=== PATIENT | male | born 1995 | race Caucasian/White ===

== ENCOUNTER 2016-06-01 21:10 | Inpatient (IN) ==
[2016-06-01] MEDS ORDERED: Insulin LISPRO 300 UNITS/3 ML VIAL SQ PRN (22:49)
[2016-06-01] MEDS ORDERED: Insulin Regular, Human 100 UNIT/ML IV ONE (22:49)
[2016-06-01] MEDS ORDERED: *HR* Dextrose 50 % in Water (Syg) 50 ML SYRINGE IVP PRN (22:49)
[2016-06-01] MEDS ORDERED: Insulin Regular, Human 100 UNIT/ML IV PRN (22:49)
[2016-06-01] MEDS ORDERED: *HR* OxyCODONE Immed Rel 5 MG TABLET PO PRN (23:00)
[2016-06-01] MEDS ORDERED: Ondansetron 4 MG/2 ML VIAL IVP PRN (23:00)
[2016-06-01] MEDS ORDERED: Acetaminophen 325 MG TABLET PO PRN (23:00)
[2016-06-01] MEDS ORDERED: Naloxone 0.4 MG/ML INJ IVP PRN (23:00)
[2016-06-01] MEDS ORDERED: 0.9 % Sodium Chloride 1,000 ML IV SCH (23:00)
[2016-06-01] MEDS ORDERED: Insulin Human Regular 100 UNIT in 0.9 % Sodium Chloride 100 ML IVC SCH (23:00)
[2016-06-01] MEDS ORDERED: D5% in 0.45% NACL 1,000 ML IVC PRN (23:19)
[2016-06-01] MEDS ORDERED: 0.9 % Sodium Chloride w KCl 20 MEQ/1,000 ML MLS IVC ONE (23:24)
[2016-06-01] MEDS: Insulin Human Regular 100 UNIT in 0.9 % Sodium Chloride 100 ML IVC SCH (23:37)
[2016-06-01] MEDS: 0.9 % Sodium Chloride w KCl 20 MEQ/1,000 ML MLS IVC SCH (23:45)
[2016-06-01 23:57] LABS: ABG Base Excess -20.8 mEq/L (-2.0 to 3.0); ABG HCO3 5.1 mEQ/L (21-27); ABG Oxygen Saturation 98 % (95-98); ABG PO2 133 mmHg (85-104); ABG TCO2 5.5 mEq/L (20-26); Blood Gas FiO2 21 %
[2016-06-01 23:59] LABS: ABG PCO2 14 mmHg (35-45); ABG PH 7.17 pH Units (7.32-7.45)
[2016-06-02] MEDS ORDERED: *HR* LORazepam 2 MG/ML VIAL IVP STA (00:35)
--- NOTE | 2016-06-02 02:59 | Internal Med History&Physical ---
Date of Encounter: 06/02/16 Time of Encounter: 23:00 Assessment and Plan (1) Obesity (BMI 30-39.9) Current visit: Yes Status: Chronic . (2) Hypertension Current visit: Yes Status: Chronic . Qualifiers: Hypertension type: essential hypertension Qualified Code(s): I10 - Essential (primary) hypertension (3) Acute gastroenteritis Current visit: Yes Status: Acute . (4) Systemic inflammatory response syndrome (SIRS) Current visit: Yes Status: Acute . (5) High anion gap metabolic acidosis Current visit: Yes Status: Acute . (6) Acute kidney injury superimposed on CKD Current visit: Yes Status: Acute . (7) Hyperosmolar syndrome Current visit: Yes Status: Acute . (8) DKA (diabetic ketoacidosis) Current visit: Yes Status: Acute . Qualifiers: Diabetes mellitus type: type 1 Diabetes mellitus complication detail: without coma Qualified Code(s): E10.10 - Type 1 diabetes mellitus with ketoacidosis without coma (9) Diabetes mellitus, new onset Current visit: Yes Status: Acute . (10) Anxiety about health Current visit: Yes Status: Acute . (11) Anxiety as acute reaction to exceptional stress Current visit: Yes Status: Acute . (12) Severe anxiety about hospitalization Current visit: Yes Status: Acute . (13) Nonspecific syndrome suggestive of viral illness Current visit: Yes Status: Acute . (14) Proteinuria with type 1 diabetes mellitus Current visit: Yes Status: Acute . (15) Diabetic nephropathy with proteinuria Current visit: Yes Status: Acute . (16) Hyperchloremic metabolic acidosis Current visit: Yes Status: Acute . Internal Medicine - H&P: HPI Chief complaint: Abdominal pain nausea vomiting headaches. Admitted From: Hospital to Hospital Transfer (Hospital transfer [facility] emergency department) Plans for Post Hospital Care: Home History of present illness: Mr. Thomson is a 21 year old male with medical history most noteworthy for hypertension and obesity. Nonsmoker. The patient was visited and interviewed and examined. The patient is admitted to the [facility] as a hospital transfer from [facility] emergency department he presented in the company of family with complaints of intractable nausea vomiting abdominal pain and headaches and malaise. Patient reported a 4-5 day period of gastrointestinal complaints. This concluded the cramping abdominal bloating nausea and emesis as well as some stools. He averaged about 4-5 episodes of emesis per day which was described as nonbloody and nonbilious. Primarily of undigested food but dry heaving also experience it well. Symptoms were exacerbated whenever he attempted to eat or drink anything. Stomach discomfort was more of a constant dull nauseated ache rather than overt pain. Bowel movements were loose but intermittently normal formed bowel movements were also noted. He noted no blood or mucus watery contents. He denied any associated urinary symptoms. Denied any overt feverishness chilling or sweats. He did have a viral-like upper respiratory symptom of sore throat and head congestion that seemed to predate these symptoms. He did not experience any upper or lower pulmonary complaints. [id number] has utilized [id number] antihistaminics and antidiarrheal that has included Dramamine and Pepto-Bismol. These of offered but little or no relief. He denies any recent travel or any known sick contacts. Does not possess any personal or family related history of chronic gastrointestinal problems. He has not undergone any previous gastrointestinal surgeries or procedures. Family history is however noteworthy for diabetes acting multiple members and heart disease affecting multiple members. He denied any recreational or dietary indiscretions. He denies alcohol, tobacco and recreational drug use. Findings in the ED: Temperature 97.5 pulse 104 respirations 20 BP 122/68 O2 saturation 97% room air. WBC 18.6 RBC 6.13 hemoglobin 16.5 platelets 478,000. MCV 79.6 and MCH 26.9. Differential shows an increase in neutrophils. Metabolic panel noted sodium of 134 potassium 3.4 chloride 95. Carbon dioxide 6 BUN 15 creatinine 2.32 GFR 36. Glucose 749 osmolality 315. Beta hydroxybutyric acid greater than 2.00. Venous blood gas pH 7.14 PCO2 23.1 PO2 61.3 bicarbonate 7.9. Phosphorus 5.3 magnesium 2.2. Urinalysis shows large protein and large glucose and large ketones small bilirubin. Specific gravity 1.025. Preliminary impression suggests new-onset type 1 diabetes mellitus presenting in acute diabetes ketoacidosis. Acute Gastro enteritis syndrome at a complaints of abdominal discomfort and nausea vomiting and diarrheal stools as well as nonspecific upper respiratory platelets of head congestion sore throat and postnasal drainage predated onset of DKA. Screening studies suggest presence of chronic kidney disease, moderate- to-severe, with GFR of 36. This may have predated the first some time today's acute events given elevation and phosphorus level implying possible secondary hyperparathyroidism. Urinalysis demonstrates significant proteinuria implying diabetic glomerular nephropathy possibly predating this acute onset of hyperglycemia and hyperosmolar syndrome. Systemic inflammatory response syndrome criteria and are present at the time of admission. Microcytic hyperchromic red blood cell indices may also suggest presence of the hemoglobinopathy such as alpha thalassemia given the high RBC count. These findings the patient is indeed at risk for further acute clinical decline and morbidity with today's presentation. Workup and treatments will progress comprehensively. Cumulative laboratory and radiographic data base was reviewed, considered and discussed. Pertinent ancillary medical records including ECW and PCI documentation, when available, was reviewed and considered. Given the patient's presenting concerns, past medical history, clinical findings and symptoms, he is admitted at this time will undergo further evaluation and disposition. Orders were written as per the computerized physician reproduction order processor system.......................................................................... .................... Consultative opinions will be sought as clinical circumstances justify. Pain management needs will be addressed. Laboratory and radiographic data base will be updated as appropriate. Studies include: Cultures of blood and urine and sputum, cardiac injury panel, BNP, metabolic and hematologic panel, magnesium, phosphorus, ionized calcium, thyroid panel, lipid profile, A1c, C-peptide, CRP, sedimentation rate, respiratory infection profile, respiratory virus panel, blood gas, U/A, UDS, amylase, lipase, beta-hydroxybutyric acid, lactic acid, serologies, etc. Precautions: Aspiration, fall, delirium protocol/surveillance initiated. Telemetry with continuous hemodynamic monitoring and pulse oximetry initiated. Orthostatic vital signs. Empiric antibiotic coverage: pending culture data. Special studies: chest x-ray, KUB, telemetry, EKG, scan, postvoid residual, ultrasound retroperitoneum. Pulmonary toilet: Incentive spirometry. When necessary aerosol bronchodilator, mucolytic, antitussive, supplemental oxygen. Fluid and electrolyte repletion efforts will proceed. Careful attention to fluid balance and renal recovery will be emphasized. Avoidance of nephrotoxic exposure and adverse drug drug interaction in the setting of impaired renal function will be monitored closely. Strict input/ output and daily weight measurements. Correction of metabolic and acid-base deficits will be emphasized. Intravenous sodium bicarbonate drip supplementation initiated to address significant hyperchloremic metabolic acidosis suggestive of RTA and renal bicarbonate losses. Acute coronary syndrome protocol/surveillance initiated. DVT and PUD prophylaxis initiated: PPI therapy, intermittent pneumatic cuffs/ TEDS. Subcutaneous heparin/lovenox was held due to age. Low risk for acute DVT. Early ambulation will be encouraged. Immunization updates recommended. Influenza and pneumococcal vaccinations as part of ongoing preventative healthcare recommendations strongly recommended. Smoking cessation counseling briefly addressed. Patient is a nonsmoker. Advanced care directive discussion briefly addressed. Patient does not declare any healthcare restrictions at this time. Cardiovascular risk appraisal and cardiovascular risk reduction efforts will be emphasized. Physical and occupational therapy may be consulted to evaluate/assess patient's functional capacity and progress mobility if circumstances justify. Sliding scale insulin, nutritional and basal insulin coverage amounts upon stabilization of glucose trends on insulin drip and DKA protocol. ADA/cardiac healthy dietary restraint and scheduled and as-needed basis fingerstick glucose assessments initiated. Nutrition/diabetes education requested to facilitate instruction in appropriate diabetes health maintenance, dietary selection, diabetes monitoring and therapeutic requirements and performance. Outpatient medication schedules will be reviewed, confirmed and facilitated as appropriate. Reconciliation of home treatments including adjustments, substitutions and reintroduction into the treatment regimen will address necessary maintenance therapies for chronic pre-existing medical conditions. Plan of care has been reviewed and discussed in detail with the patient and family in attendance. Questions addressed to their mutual satisfaction and reassurance. Hospital course is dependent on clinical findings, treatment response and potential consultative interventions. Patient is at risk for further acute clinical decline and morbidity given presenting chief complaints, clinical findings and comorbidities. Condition is serious. Prognosis is cautiously optimistic. CODE STATUS is full. Past Med Surg Social Fam HX - Past Medical History Source: old records reviewed Medical history: arthritis, hypertension, other (Obesity) Psychiatric history: no psych history, other - Past Surgical History Surgical History: other (Tonsillectomy adenoidectomy. Bilateral myringotomy tubes.) - Social History Smoking Status: Never smoker Smokeless Tobacco Status: No Alcohol use: none Drug use: none - Family History Grandfather Hx Family Endocrine Disorder: Yes Internal Medicine - H&P: Meds Lisinopril [Zestril] 20 mg PO DAILY 06/01/16 [History] Allergies No Known Allergies Allergy (Verified 06/01/16 19:18) All Systems PM: A 10-system review of systems was performed and is negative for pertinent findings except as documented above in the HPI. - Constitutional Constitutional: as per HPI, malaise, other, no chills, no fever(s), no night sweats - EENT Eyes: as per HPI, no change in vision, no discharge, no pain, no photophobia Ears: as per HPI, no ear discharge, no ear pain, no tinnitus Nose, mouth and throat: as per HPI, nasal congestion, post-nasal drip, sore throat, other, no dysphagia, no nasal discharge, no neck pain - Cardiovascular Cardiovascular ROS IM: as per HPI, no chest pain, no diaphoresis, no dyspnea, no lightheadedness, no palpitations, no syncope - Respiratory Respiratory: as per HPI, no cough, no dyspnea, no wheezing, no excessive phlegm production - Gastrointestinal Gastrointestinal: as per HPI, abdominal pain, bloating, change in bowel habits, cramping, nausea, vomiting, other, no coffee ground emesis, no diarrhea, no hematemesis, no hematochezia, no melena - Genitourinary Genitourinary ROS male: as per HPI, no difficulty urinating, no dysuria, no hematuria - Musculoskeletal Musculoskeletal ROS IM: as per HPI, myalgias, no numbness, no tingling - Integumentary Integumentary IM: as per HPI, no rash, no unusual bruising - Neurological Neurological ROS: as per HPI, headache(s), no confusion, no convulsions, no focal weakness, no numbness, no tingling, no tremor(s) - Psychiatric Psychiatric: as per HPI - Endocrine Endocrine IM: as per HPI, fatigue, polyuria - Hematologic/Lymphatic Hematologic/Lymphatic: as per HPI, no easy bruising - Allergic/Immunologic Allergic/Immunologic: as per HPI - Constitutional Vitals: Temp Pulse Resp BP Pulse Ox 98.5 F 130 20 166/83 98 06/01/16 22:44 06/01/16 22:44 06/01/16 22:44 06/01/16 22:44 06/01/16 22:44 General appearance: Present: cooperative, mild distress, A&O X 3, obese, answers questions appropriately - Head Head exam: Present: atraumatic, normal inspection, normocephalic - Eye Eye exam: Present: EOMI, PERRL, conjuntiva pink, sclera anicteric Pupils: Present: normal accommodation, PERRL - ENT ENT exam: Present: mucous membranes dry, normal external ear exam, normal oropharynx - Neck Neck exam general surgery: Present: full ROM, supple, trachea midline. Absent: lymphadenopathy, tenderness, nuchal rigidity - Respiratory Respiratory exam: Present: decreased breath sounds, CTAB. Absent: accessory muscle use, rales, rhonchi, wheezes - Cardiovascular Cardiovascular exam: Present: distant heart sounds, RRR, +S1, +S2, tachycardia. Absent: diastolic murmur, gallop, rubs, systolic murmur - GI/Abdominal GI/Abdominal exam: Present: normal bowel sounds, soft, no peritoneal signs. Absent: distended, tenderness - Extremities Exam Extremities exam: Present: full ROM, warm, radial pulses palpable and symetrical. Absent: calf tenderness, cyanotic, pedal edema - Neurological Exam Neurological exam: Present: alert, CN II-XII intact, oriented X3, no focal deficits. Absent: pronater drift, facial droop, speech deficit - Expanded Neurological Exam Neurological exam expanded: Present: inattentive, protecting the airway. Absent : ataxia, expressive aphasia, receptive aphasia Patient oriented to: Present: person, place, time Speech: Present: fluid speech Coma Scale Eye Opening: Spontaneous Coma Scale Motor Response: Obeys Commands Coma Scale Verbal Response: Oriented Coma Scale Total: 15 - Psychiatric Psychiatric exam: Present: anxious, normal affect, normal mood - Expanded Psychiatric Exam Focused psych exam: Present: restlessness - Skin Skin exam: Present: dry, intact, warm. Absent: petechiae, rash, urticaria, vesicles Internal Med - H&P Results - Labs CBC & Chem 7: 06/02/16 04:29 06/02/16 04:29 - ABG Interpretation ABG results: 06/01/16 23:47 ABG pH 7.17 L* ABG pCO2 14 L* ABG pO2 133 H ABG HCO3 5.1 L ABG Total CO2 5.5 L ABG O2 Saturation 98 ABG Base Excess -20.8 L - Impressions ITS Impressions Chest X-Ray 06/01/16 22:59 IMPRESSION: No acute process. D/ / Deborah Plascencia MD / Deborah Plascencia MD Interpreting Provider: Deborah Plascencia MD X-Ray 06/01/16 23:07 IMPRESSION: No acute findings. D/ / Deborah Plascencia MD / Deborah Plascencia MD Interpreting Provider: Deborah Plascencia MD Vital Signs Temp Pulse Resp BP Pulse Ox 06/01/16 22:44 98.5 F 130 20 166/83 98 Intake and Output 06/01/16 06/01/16 06/02/16 15:59 23:59 07:59 Intake Total 41 / 41 Balance 41 / 41 Intake: IV Fluids / HumuLIN R 100 UNIT In 0. 41 / 41 9 % Sodium Chloride 100 ML @ 0.1 UNIT/KG/HR 12.77 mls/hr IVC CONT MUSTAPHA Rx#: [id number] Other: Weight 126.5 kg Blood Glucose* 337 Allergies Allergy/AdvReac Type Severity Reaction Status Date / Time No Known Allergies Allergy Verified 06/01/16 19:18 06/01/16 23:47 ABG pH 7.17 L* ABG pCO2 14 L* ABG pO2 133 H ABG HCO3 5.1 L ABG Total CO2 5.5 L ABG O2 Saturation 98 ABG Base Excess -20.8 L Abnormal lab results ABG pH 7.17 pH Units (7.32-7.45) L* 06/01/16 23:47 ABG pCO2 14 mmHg (35-45) L* 06/01/16 23:47 ABG pO2 133 mmHg (85-104) H 06/01/16 23:47 ABG HCO3 5.1 mEQ/L (21-27) L 06/01/16 23:47 ABG Total CO2 5.5 mEq/L (20-26) L 06/01/16 23:47 ABG Base Excess -20.8 mEq/L (-2.0 to 3.0) L 06/01/16 23:47 POC Glucose 464 (58-89) H* 06/02/16 01:28 Serum Osmolality 343 mOsm/kg (280-300) H 06/02/16 00:01 Laboratory Last Values ABG pH 7.17 pH Units (7.32-7.45) L* 06/01/16 23:47 ABG pCO2 14 mmHg (35-45) L* 06/01/16 23:47 ABG pO2 133 mmHg (85-104) H 06/01/16 23:47 ABG HCO3 5.1 mEQ/L (21-27) L 06/01/16 23:47 ABG Total CO2 5.5 mEq/L (20-26) L 06/01/16 23:47 ABG O2 Saturation 98 % (95-98) 06/01/16 23:47 ABG Base Excess -20.8 mEq/L (-2.0 to 3.0) L 06/01/16 23:47 Blood Gas Modality RA 06/01/16 23:47 Inspired O2 21 % 06/01/16 23:47 POC Glucose 464 (58-89) H* 06/02/16 01:28 Serum Osmolality 343 mOsm/kg (280-300) H 06/02/16 00:01 Laboratory Last Values WBC 20.8 K/mcL (4.3-11.1) H 06/02/16 04:29 RBC 5.80 M/mcL (4.19-5.50) H 06/02/16 04:29 Hgb 15.5 g/dL (12.9-16.9) 06/02/16 04:29 Hct 47.3 % (37.5-50.1) 06/02/16 04:29 MCV 81.6 fL (83.0-100.0) L 06/02/16 04:29 MCH 26.7 pg (28.0-33.3) L 06/02/16 04:29 MCHC 32.8 g/dL (31.6-35.5) 06/02/16 04:29 RDW 14.4 % (11.5-14.5) 06/02/16 04:29 Plt Count 406 K/mcL (140-400) H 06/02/16 04:29 MPV 10.7 fL (9.4-12.4) 06/02/16 04:29 Immature Gran % 1.4 % (0-4) 06/02/16 04:29 Seg Neutrophils % 76.7 % 06/02/16 04:29 Lymphocytes % 14.4 % 06/02/16 04:29 Monocytes % 6.9 % 06/02/16 04:29 Eosinophils % 0.0 % 06/02/16 04:29 Basophils % 0.6 % 06/02/16 04:29 Neutrophils # 16.0 K/mcL (1.6-8.9) H 06/02/16 04:29 Lymphocytes # 3.0 K/mcL (0.6-4.6) 06/02/16 04:29 Monocytes # 1.4 K/mcL (0.0-1.3) H 06/02/16 04:29 Eosinophils # 0.0 K/mcL (0.0-0.6) 06/02/16 04:29 Basophils # 0.1 K/mcL (0.0-0.2) 06/02/16 04:29 PT 12.7 Seconds (9.4-12.1) H 06/02/16 04:29 INR 1.2 06/02/16 04:29 APTT 27.9 Seconds (26.0-36.0) 06/02/16 04:29 ABG pH 7.17 pH Units (7.32-7.45) L* 06/01/16 23:47 ABG pCO2 14 mmHg (35-45) L* 06/01/16 23:47 ABG pO2 133 mmHg (85-104) H 06/01/16 23:47 ABG HCO3 5.1 mEQ/L (21-27) L 06/01/16 23:47 ABG Total CO2 5.5 mEq/L (20-26) L 06/01/16 23:47 ABG O2 Saturation 98 % (95-98) 06/01/16 23:47 ABG Base Excess -20.8 mEq/L (-2.0 to 3.0) L 06/01/16 23:47 VBG pH 7.24 pH Units (7.32-7.42) L 06/02/16 04:29 VBG pCO2 19 mmHg (41-51) L 06/02/16 04:29 VBG pO2 166 mmHg (25-40) H 06/02/16 04:29 VBG HCO3 8.1 mEq/L (21-27) L 06/02/16 04:29 Blood Gas Modality RA 06/01/16 23:47 Inspired O2 21 % 06/01/16 23:47 Sodium 142 mEq/L (136-145) D 06/02/16 04:29 Potassium 3.1 mEq/L (3.5-4.5) L 06/02/16 04:29 Chloride 113 mEq/L (98-109) H D 06/02/16 04:29 Carbon Dioxide 7 mEq/L (19-29) L* 06/02/16 04:29 BUN 15 mg/dL (8-26) 06/02/16 04:29 Creatinine 2.31 mg/dL (0.72-1.25) H 06/02/16 04:29 Est GFR ( Amer) 44 (> 60) L 06/02/16 04:29 Est GFR (Non-Af Amer) 36 (> 60) L 06/02/16 04:29 BUN/Creatinine Ratio 6 (6-26) 06/02/16 04:29 Glucose 340 mg/dL (70-99) H 06/02/16 04:29 POC Glucose 464 (58-89) H* 06/02/16 01:28 Est Mean Plasma Glucose 324 mg/dl 06/02/16 04:29 Hemoglobin A1c 12.9 % (-5.6) H 06/02/16 04:29 Serum Osmolality 343 mOsm/kg (280-300) H 06/02/16 00:01 Calculated Osmolality 308 (280-300) H 06/02/16 04:29 Lactic Acid 1.9 mmol/L (0.5-2.2) 06/02/16 04:29 Calcium 9.7 mg/dL (8.6-10.8) 06/02/16 04:29 Phosphorus 1.0 mg/dL (2.3-4.7) L* D 06/02/16 04:29 Magnesium 2.3 mg/dL (1.7-2.2) H 06/02/16 04:29 Total Bilirubin 0.3 mg/dL (0.2-1.2) 06/02/16 04:29 AST 11 Units/L (5-34) 06/02/16 04:29 ALT 16 Units/L (0-55) 06/02/16 04:29 Alkaline Phosphatase 104 Units/L (38-126) 06/02/16 04:29 Serum Total Protein 7.4 g/dL (6.0-8.3) 06/02/16 04:29 Albumin 3.9 g/dL (3.5-5.0) 06/02/16 04:29 Globulin 3.5 g/dL (2.4-3.5) 06/02/16 04:29 Albumin/Globulin Ratio 1.1 (1.1-2.2) 06/02/16 04:29 Beta-Hydroxybutyric Acd > 2.00 mmol/L (0.02-0.27) H 06/02/16 04:29
[2016-06-02] MEDS: 0.9 % Sodium Chloride w KCl 20 MEQ/1,000 ML MLS IVC SCH ×3 (03:31→10:04)
[2016-06-02] MEDS ORDERED: *HR* LORazepam 2 MG/ML VIAL IVP PRN (04:00)
[2016-06-02 04:41] LABS: Basophils # 0.1 K/mcL (0.0-0.2); Basophils % 0.6 %; Hematocrit 47.3 % (37.5-50.1); Hemoglobin 15.5 g/dL (12.9-16.9); Immature Granulocytes % 1.4 % (0-4); Lymphocytes % 14.4 %; Mean Corpuscular HGB Conc 32.8 g/dL (31.6-35.5); Mean Corpuscular Hemoglobin 26.7 pg (28.0-33.3); Mean Corpuscular Volume 81.6 fL (83.0-100.0); Mean Platelet Volume 10.7 fL (9.4-12.4); Monocytes # 1.4 K/mcL (0.0-1.3); Monocytes % 6.9 %; Platelet Count 406 K/mcL (140-400); Red Cell Distribution Width 14.4 % (11.5-14.5); Segmented Neutrophils % 76.7 %
[2016-06-02 04:44] LABS: INR 1.2; Prothrombin Time 12.7 Seconds (9.4-12.1)
[2016-06-02 04:45] LABS: VBG HCO3 8.1 mEq/L (21-27); VBG PH 7.24 pH Units (7.32-7.42)
[2016-06-02 04:46] LABS: Activated Partial Thrombo Time 27.9 Seconds (26.0-36.0); Hemoglobin A1C 12.9 %
[2016-06-02 04:55] LABS: Beta-Hydroxybutyric Acid > 2.00 mmol/L (0.02-0.27)
[2016-06-02 04:57] LABS: Alanine Aminotransferase 16 Units/L (0-55); Albumin 3.9 g/dL (3.5-5.0); Albumin/Globulin Ratio 1.1 (1.1-2.2); Alkaline Phosphatase 104 Units/L (38-126); Aspartate Amino Transferase 11 Units/L (5-34); BUN/Creatinine Ratio 6 (6-26); Bilirubin,Total 0.3 mg/dL (0.2-1.2); Blood Urea Nitrogen 15 mg/dL (8-26); Calcium 9.7 mg/dL (8.6-10.8); Chloride 113 mEq/L (98-109); Globulin 3.5 g/dL (2.4-3.5); Glucose 340 mg/dL (70-99); Magnesium 2.3 mg/dL (1.7-2.2); Osmolality,Calculated 308 (280-300); Potassium 3.1 mEq/L (3.5-4.5); Sodium 142 mEq/L (136-145); Total Protein 7.4 g/dL (6.0-8.3); eGFR For African Americans 44 (> 60); eGFR For Non-African Americans 36 (> 60)
[2016-06-02 05:05] LABS: Carbon Dioxide 7 mEq/L (19-29)
[2016-06-02] MEDS ORDERED: Lidocaine -MPF 1% 2 ML VIAL ID PRN (05:20)
[2016-06-02] MEDS ORDERED: Potassium Phosphate 44 MEQ in 0.9 % Sodium Chloride 250 ML IVPB STA (05:23)
[2016-06-02] MEDS ORDERED: Sodium Bicarbonate 100 MEQ in 0.45 % Sodium Chloride 1,000 ML IVC SCH (05:30)
[2016-06-02] MEDS ORDERED: Sodium Phosphate 30 MMOL in D5% in Water 100 ML IVPB PRN (06:11)
[2016-06-02] MEDS ORDERED: Calcium Gluconate 1,000 MG in D5% in Water 100 ML IVPB PRN (06:11)
[2016-06-02 06:42] LABS: INR 1.1; Prothrombin Time 12.4 Seconds (9.4-12.1)
[2016-06-02 06:45] LABS: Activated Partial Thrombo Time 27.7 Seconds (26.0-36.0)
[2016-06-02] MEDS: Pantoprazole 40 MG VIAL IVP SCH (08:10)
[2016-06-02 08:12] LABS: VBG HCO3 12.7 mEq/L (21-27); VBG PH 7.25 pH Units (7.32-7.42)
[2016-06-02 08:13] LABS: Basophils # 0.1 K/mcL (0.0-0.2); Basophils % 0.5 %; Eosinophils % 0.1 %; Hematocrit 42.7 % (37.5-50.1); Hemoglobin 14.9 g/dL (12.9-16.9); Immature Granulocytes % 0.9 % (0-4); Lymphocytes # 2.3 K/mcL (0.6-4.6); Lymphocytes % 13.6 %; Mean Corpuscular HGB Conc 34.9 g/dL (31.6-35.5); Mean Corpuscular Hemoglobin 27.6 pg (28.0-33.3); Mean Corpuscular Volume 79.2 fL (83.0-100.0); Mean Platelet Volume 10.4 fL (9.4-12.4); Monocytes # 1.8 K/mcL (0.0-1.3); Monocytes % 10.5 %; Neutrophils # 12.8 K/mcL (1.6-8.9); Platelet Count 369 K/mcL (140-400); Red Blood Count 5.39 M/mcL (4.19-5.50); Red Cell Distribution Width 14.6 % (11.5-14.5); Segmented Neutrophils % 74.4 %
[2016-06-02] MEDS: 0.9 % Sodium Chloride 1,000 ML IV SCH ×2 (08:21→13:05)
[2016-06-02] MEDS: 0.45 % Sodium Chloride w/KCl 20 MEQ/1,000 ML MLS IVC SCH ×3 (08:22→09:14)
[2016-06-02 08:24] LABS: Magnesium 2.1 mg/dL (1.7-2.2)
[2016-06-02 08:25] LABS: Calcium 9.4 mg/dL (8.6-10.8); Phosphorous 2.2 mg/dL (2.3-4.7); Potassium 3.6 mEq/L (3.5-4.5)
--- NOTE | 2016-06-02 08:55 | Internal Med Progress Note ---
Date of Encounter: 06/02/16 Time of Encounter: 08:54 - Assessment and plan (1) JUANITA (acute kidney injury) Current Visit: Yes Status: Acute Assessment and plan: likely related to DKA and dehydration; continue IV hydration; serum creatinine noted to be improving; could be having underlying nephropathy from undiagnosed DM; f/up renal ultrasound; (2) DKA (diabetic ketoacidosis) Current Visit: Yes Status: Acute Assessment and plan: has been off IV insulin and started on basal bolus insulin regimen; diabetic diet started; noted to have hyperchloremic acidosis and fluids changed to RL; monitor and replete electrolytes closely; continues to have metabolic acidosis with improved anion gap; monitor BMP Q4hrly until labs normalize; high risk condition; Telemetry monitoring, monitor vitals closely and urine output; Qualifiers: Diabetes mellitus type: type 1 Diabetes mellitus complication detail: without coma Qualified Code(s): E10.10 - Type 1 diabetes mellitus with ketoacidosis without coma (3) Diabetes mellitus, new onset Current Visit: Yes Status: Acute Assessment and plan: Dietitian and DM educator consult; (4) Obesity (BMI 30-39.9) Current Visit: Yes Status: Chronic - Subjective Interval history: c/o- generalized weakness and fatigue; no nausea, vomiting, abdominal pain; feels hungry and asks about diet; explained regarding his labs and protocol; - Constitutional Vitals: Temp Pulse Resp BP Pulse Ox 97.7 F 108 16 114/57 98 06/02/16 07:38 06/02/16 08:00 06/02/16 07:38 06/02/16 07:38 06/02/16 07:38 General appearance: Present: A&O X 3, obese, answers questions appropriately - Head Head exam: Present: atraumatic, normocephalic - Neck Neck exam general surgery: Present: supple, trachea midline. Absent: lymphadenopathy - Respiratory Respiratory exam: Present: CTAB. Absent: accessory muscle use, rales, rhonchi, wheezes - Cardiovascular Cardiovascular exam: Present: RRR, +S1, +S2. Absent: diastolic murmur, gallop, rubs, systolic murmur - GI/Abdominal GI/Abdominal exam: Present: normal bowel sounds, soft (obese and nontender), no peritoneal signs. Absent: distended, tenderness - Extremities Exam Extremities exam: Present: full ROM, warm, radial pulses palpable and symetrical. Absent: calf tenderness, cyanotic, pedal edema - Neurological Exam Neurological exam: Present: CN II-XII intact, oriented X3, no focal deficits. Absent: pronater drift, facial droop, speech deficit - Skin Skin exam: Present: dry, intact Internal Medicine: Result - Labs CBC & Chem 7: 06/02/16 07:58 06/02/16 18:02 Labs: Short CBC 06/02/16 06/02/16 Range/Units 04:29 07:58 WBC 20.8 H 17.2 H (4.3-11.1) K/mcL Hgb 15.5 14.9 (12.9-16.9) g/dL Hct 47.3 42.7 (37.5-50.1) % Plt Count 406 H 369 (140-400) K/mcL Neutrophils # 16.0 H 12.8 H (1.6-8.9) K/mcL BMP 06/02/16 06/02/16 04:29 07:58 Sodium 142 D 143 Potassium 3.1 L 3.6 Chloride 113 H D 114 H Carbon Dioxide 7 L* 10 L* BUN 15 17 Creatinine 2.31 H 1.93 H Glucose 340 H 235 H Calcium 9.7 9.4 Liver Function 06/02/16 Range/Units 04:29 Total Bilirubin 0.3 (0.2-1.2) mg/dL AST 11 (5-34) Units/L ALT 16 (0-55) Units/L Alkaline Phosphatase 104 (38-126) Units/L Albumin 3.9 (3.5-5.0) g/dL - ABG Interpretation ABG results: ABG ABG pH 7.17 pH Units (7.32-7.45) L* 06/01/16 23:47 ABG pCO2 14 mmHg (35-45) L* 06/01/16 23:47 ABG pO2 133 mmHg (85-104) H 06/01/16 23:47 ABG O2 Saturation 98 % (95-98) 06/01/16 23:47 PT/INR, D-dimer PT 12.4 Seconds (9.4-12.1) H 06/02/16 06:30 - Impressions Impressions Chest X-Ray 06/01/16 22:59 IMPRESSION: No acute process. D/ / Deborah Plascencia MD / Deborah Plascencia MD Interpreting Provider: Deborah Plascencia MD X-Ray 06/01/16 23:07 IMPRESSION: No acute findings. D/ / Deborah Plascencia MD / Deborah Plascencia MD Interpreting Provider: Deborah Plascencia MD Consult Discharge Plan - Plan Referrals: NO,PCP [Non-Partnered Physician] - Tomasz Cortez MANAGER SUPPLIER [Primary Care Provider] - 06/10/16 2:00 pm (PLEASE TAKE THE NEW PATIENT PACKET FILLED OUT WITH YOU TO YOUR APPOINTMENT. YOU WILL NEED $ 125.00 UP FRONT. TAKE WITH YOU YOUR PICTURE ID, INS. CARD, AND ALL MEDICATION IN THE BOTTLES. TAKE YOUR DISCHARGE INSTUCTIONS WITH YOU TO YOUR APPOINTMENT. SHOW UP 15 MINS EARLY TO YOUR APPOINTMENT. IF YOU HAVE TO CANCEL PLEASE CALL [phone] WITH IN 24 HOURS OF YOUR APPOINTMENT. THANKS)
[2016-06-02] MEDS: D5% in 0.45% NACL w KCl 20 MEQ/1,000 ML MLS IVC PRN ×2 (09:08→11:58)
[2016-06-02] MEDS: Insulin Human Regular 100 UNIT in 0.9 % Sodium Chloride 100 ML IVC SCH (10:53)
[2016-06-02] MEDS: Potassium Phosphate 44 MEQ in 0.9 % Sodium Chloride 250 ML IVPB PRN ×2 (11:00→17:06)
[2016-06-02 12:15] LABS: VBG HCO3 15.7 mEq/L (21-27); VBG PH 7.26 pH Units (7.32-7.42)
[2016-06-02 12:29] LABS: BUN/Creatinine Ratio 11 (6-26); Blood Urea Nitrogen 17 mg/dL (8-26); Carbon Dioxide 13 mEq/L (19-29); Chloride 116 mEq/L (98-109); Glucose 202 mg/dL (70-99); Magnesium 2.1 mg/dL (1.7-2.2); Osmolality,Calculated 301 (280-300); Phosphorous 3.3 mg/dL (2.3-4.7); Sodium 142 mEq/L (136-145); eGFR For African Americans > 60 (> 60); eGFR For Non-African Americans 56 (> 60)
[2016-06-02 12:30] LABS: Chol/HDL Ratio 4.2 (0-4.9)
[2016-06-02 12:43] LABS: Potassium 5.6 mEq/L (3.5-4.5)
[2016-06-02 14:15] LABS: Bilirubin,Urine Large (Negative); Blood,Urine Negative (Negative); Clarity,Urine Clear (Clear); Color,Urine Yellow (Yellow); Glucose,Urine (UA) >=1000 mg/dL (Normal); Ketones,Urine 80 mg/dL (Negative); Leukocyte Esterase,Urine Negative (Negative); Nitrite,Urine Negative (Negative); Protein,Urine 30 mg/dL (Neg-Trace); Specific Gravity,Urine 1.026 (1.010-1.025); Urobilinogen,Urine Normal (Normal)
[2016-06-02 14:18] LABS: Bacteria,Urine None Seen per hpf (None-Few); RBC,Urine 0-3 per hpf (0-3); Squamous Epithelial Cell,Urine Many per lpf (None-Few)
[2016-06-02 14:20] LABS: Amphetamine Screen,Urine Negative ng/mL (Cutoff=1000); Barbiturate Screen,Urine Negative ng/mL (Cutoff=200); Benzodiazepines Screen,Urine Negative ng/mL (Cutoff=200); Cannabinoid Screen,Urine Negative ng/mL (Cutoff = 50); Cocaine Screen,Urine Negative ng/mL (Cutoff= 300); Opiate Screen,Urine Negative ng/mL (Cutoff=300); Phencyclidine Screen,Urine Negative ng/mL (Cutoff=25)
[2016-06-02 14:34] LABS: Hyaline Casts,Urine Few per lpf (None-Few)
[2016-06-02 14:42] LABS: Protein/Creatinine Ratio,Urine 0.31 mg/mg (0-0.20)
[2016-06-02 14:55] LABS: VBG HCO3 17.4 mEq/L (21-27); VBG PH 7.28 pH Units (7.32-7.42)
[2016-06-02 15:11] LABS: BUN/Creatinine Ratio 11 (6-26); Blood Urea Nitrogen 16 mg/dL (8-26); Calcium 9.3 mg/dL (8.6-10.8); Carbon Dioxide 15 mEq/L (19-29); Chloride 116 mEq/L (98-109); Glucose 100 mg/dL (70-99); Osmolality,Calculated 297 (280-300); Phosphorous 1.9 mg/dL (2.3-4.7); Sodium 143 mEq/L (136-145); eGFR For African Americans > 60 (> 60); eGFR For Non-African Americans > 60 (> 60)
[2016-06-02 15:17] LABS: Potassium 3.1 mEq/L (3.5-4.5)
[2016-06-02] MEDS ORDERED: Insulin DETEMIR 100 UNIT/ML X5UNITS SQ ONE (15:24)
[2016-06-02 15:27] LABS: Amylase 96 Units/L (25-125); Lipase 51 Units/L (8-78)
[2016-06-02] MEDS ORDERED: *HR* Dextrose 50 % in Water (Syg) 50 ML SYRINGE IVP PRN ×2 (15:27→18:57)
[2016-06-02] MEDS ORDERED: D5% in Water 1,000 ML IV PRN ×2 (15:27→18:57)
[2016-06-02] MEDS ORDERED: Dextrose Gel 15 GM PO PRN ×3 (15:27→18:57)
[2016-06-02] MEDS ORDERED: Ringers Solution, Lactated 1,000 ML IVC SCH (15:30)
[2016-06-02] MEDS: Ringers Solution, Lactated 1,000 ML IVC SCH (16:27)
[2016-06-02] MEDS: Insulin LISPRO 300 UNITS/3 ML VIAL SQ SCH (17:17)
[2016-06-02 18:24] LABS: VBG HCO3 14.1 mEq/L (21-27); VBG PH 7.28 pH Units (7.32-7.42)
[2016-06-02 18:33] LABS: Magnesium 1.6 mg/dL (1.7-2.2)
[2016-06-02 18:34] LABS: BUN/Creatinine Ratio 11 (6-26); Blood Urea Nitrogen 15 mg/dL (8-26); Calcium 8.3 mg/dL (8.6-10.8); Carbon Dioxide 14 mEq/L (19-29); Chloride 109 mEq/L (98-109); Glucose 303 mg/dL (70-99); Osmolality,Calculated 298 (280-300); Potassium 3.5 mEq/L (3.5-4.5); Sodium 138 mEq/L (136-145); eGFR For African Americans > 60 (> 60); eGFR For Non-African Americans > 60 (> 60)
[2016-06-02 18:35] LABS: Phosphorous 3.4 mg/dL (2.3-4.7)
[2016-06-02] MEDS: Magnesium Sulfate 2 GM in D5% in Water 100 ML IVPB PRN (18:48)
[2016-06-02] MEDS ORDERED: Insulin LISPRO 300 UNITS/3 ML VIAL SQ SCH (21:00)
[2016-06-03 00:59] LABS: VBG HCO3 17.9 mEq/L (21-27); VBG PH 7.33 pH Units (7.32-7.42)
[2016-06-03 01:24] LABS: BUN/Creatinine Ratio 9 (6-26); Blood Urea Nitrogen 12 mg/dL (8-26); Calcium 8.1 mg/dL (8.6-10.8); Carbon Dioxide 15 mEq/L (19-29); Chloride 107 mEq/L (98-109); Glucose 397 mg/dL (70-99); Magnesium 1.7 mg/dL (1.7-2.2); Osmolality,Calculated 298 (280-300); Phosphorous 2.6 mg/dL (2.3-4.7); Potassium 3.2 mEq/L (3.5-4.5); Sodium 136 mEq/L (136-145); eGFR For African Americans > 60 (> 60); eGFR For Non-African Americans > 60 (> 60)
[2016-06-03 04:01] LABS: VBG HCO3 19.1 mEq/L (21-27); VBG PH 7.37 pH Units (7.32-7.42)
[2016-06-03 04:10] LABS: Ionized Calcium 1.19 mmol/L (1.15-1.35)
[2016-06-03 04:18] LABS: BUN/Creatinine Ratio 8 (6-26); Blood Urea Nitrogen 10 mg/dL (8-26); Calcium 8.6 mg/dL (8.6-10.8); Carbon Dioxide 16 mEq/L (19-29); Chloride 107 mEq/L (98-109); Glucose 322 mg/dL (70-99); Osmolality,Calculated 297 (280-300); Phosphorous 2.4 mg/dL (2.3-4.7); Potassium 3.2 mEq/L (3.5-4.5); Sodium 138 mEq/L (136-145); eGFR For African Americans > 60 (> 60); eGFR For Non-African Americans > 60 (> 60)
[2016-06-03] MEDS: Ringers Solution, Lactated 1,000 ML IVC SCH (05:23)
[2016-06-03] MEDS: Magnesium Sulfate 2 GM in D5% in Water 100 ML IVPB PRN ×3 (06:10→22:17)
[2016-06-03] MEDS ORDERED: D5% in 0.45% NACL w KCl 20 MEQ/1,000 ML MLS IVC PRN (08:10)
[2016-06-03] MEDS ORDERED: Insulin Human Regular 100 UNIT in 0.9 % Sodium Chloride 100 ML IVC SCH (08:15)
--- NOTE | 2016-06-03 08:18 | Internal Med Progress Note ---
Date of Encounter: 06/03/16 Time of Encounter: 08:14 - Assessment and plan (1) DKA (diabetic ketoacidosis) Current Visit: Yes Status: Acute Qualifiers: Diabetes mellitus type: other specified (including KALYANI) Diabetes mellitus complication detail: without coma Qualified Code(s): E13.10 - Other specified diabetes mellitus with ketoacidosis without coma (2) Diabetes mellitus, new onset Current Visit: Yes Status: Acute (3) High anion gap metabolic acidosis Current Visit: Yes Status: Acute (4) Obesity (BMI 30-39.9) Current Visit: Yes Status: Chronic Assessment and plan: Pt is still acidotic, will restart insulin drip. Monitor acidosis closely, recheck BMP Continue accucheck per DKA protocol. Diabetic education Diabetic Diet - Subjective Interval history: f/u for DKA, No new complains - Constitutional Vitals: Temp Pulse Resp BP Pulse Ox 98.3 F 115 16 132/62 98 06/03/16 07:35 06/03/16 07:35 06/03/16 07:35 06/03/16 07:35 06/03/16 07:35 General appearance: Present: A&O X 3, obese, answers questions appropriately - Head Head exam: Present: atraumatic, normocephalic - Eye Eye exam: Present: PERRL, conjuntiva pink, sclera anicteric Pupils: Present: PERRL - Neck Neck exam general surgery: Present: supple, trachea midline. Absent: lymphadenopathy - Respiratory Respiratory exam: Present: CTAB. Absent: accessory muscle use, rales, rhonchi, wheezes - Cardiovascular Cardiovascular exam: Present: RRR, +S1, +S2. Absent: diastolic murmur, gallop, rubs, systolic murmur - GI/Abdominal GI/Abdominal exam: Present: normal bowel sounds, soft, no peritoneal signs. Absent: distended, tenderness - Extremities Exam Extremities exam: Present: warm, radial pulses palpable and symetrical. Absent : calf tenderness, cyanotic, pedal edema - Neurological Exam Neurological exam: Present: CN II-XII intact, oriented X3, no focal deficits. Absent: pronater drift, facial droop, speech deficit - Skin Skin exam: Present: dry, intact Internal Medicine: Result - Labs CBC & Chem 7: 06/02/16 07:58 06/03/16 Unknown Labs: Short CBC 06/02/16 Range/Units 07:58 WBC 17.2 H (4.3-11.1) K/mcL Hgb 14.9 (12.9-16.9) g/dL Hct 42.7 (37.5-50.1) % Plt Count 369 (140-400) K/mcL Neutrophils # 12.8 H (1.6-8.9) K/mcL BMP 06/02/16 06/02/16 06/02/16 07:58 11:58 14:30 Sodium 143 142 143 Potassium 3.6 5.6 H D 3.1 L D Chloride 114 H 116 H 116 H Carbon Dioxide 10 L* 13 L 15 L BUN 17 17 16 Creatinine 1.93 H 1.58 H 1.45 H Glucose 235 H 202 H 100 H Calcium 9.4 9.0 9.3 06/02/16 06/03/16 06/03/16 18:02 00:53 Unknown Sodium 138 136 138 Potassium 3.5 3.2 L 3.2 L Chloride 109 107 107 Carbon Dioxide 14 L 15 L 16 L BUN 15 12 10 Creatinine 1.41 H 1.33 H 1.21 Glucose 303 H 397 H 322 H Calcium 8.3 L 8.1 L 8.6 Urine 06/02/16 Range/Units 14:09 Urine Color Yellow (Yellow) Urine Clarity Clear (Clear) Urine pH 6.0 (5.0-8.0) pH Units Ur Specific [place] 1.026 H (1.010-1.025) Urine Protein 30 H (Neg-Trace) mg/dL Urine Glucose (UA) >=1000 H (Normal) mg/dL - ABG Interpretation ABG results: ABG ABG pH 7.17 pH Units (7.32-7.45) L* 06/01/16 23:47 ABG pCO2 14 mmHg (35-45) L* 06/01/16 23:47 ABG pO2 133 mmHg (85-104) H 06/01/16 23:47 ABG O2 Saturation 98 % (95-98) 06/01/16 23:47 PT/INR, D-dimer PT 12.4 Seconds (9.4-12.1) H 06/02/16 06:30 - Impressions Impressions Retroperitoneum Ultrasound 06/02/16 15:00 IMPRESSION: Unremarkable ultrasound of the kidneys and urinary bladder. Visualized portions of the liver are increased in echogenicity, suggestive of steatosis. D/ / Farzad Lane MD / Farzad Lane MD Interpreting Provider: Farzad Lane MD Consult Discharge Plan - Plan Referrals: NO,PCP [Non-Partnered Physician] - Tomasz Cortez POULTRY FARM WORKER [Primary Care Provider] - 06/10/16 2:00 pm (PLEASE TAKE THE NEW PATIENT PACKET FILLED OUT WITH YOU TO YOUR APPOINTMENT. YOU WILL NEED $ 125.00 UP FRONT. TAKE WITH YOU YOUR PICTURE ID, INS. CARD, AND ALL MEDICATION IN THE BOTTLES. TAKE YOUR DISCHARGE INSTUCTIONS WITH YOU TO YOUR APPOINTMENT. SHOW UP 15 MINS EARLY TO YOUR APPOINTMENT. IF YOU HAVE TO CANCEL PLEASE CALL 1- [phone] WITH IN 24 HOURS OF YOUR APPOINTMENT. THANKS)
[2016-06-03] MEDS: 0.9 % Sodium Chloride w KCl 20 MEQ/1,000 ML MLS IVC SCH ×2 (09:06→16:38)
[2016-06-03] MEDS: Pantoprazole 40 MG VIAL IVP SCH (09:07)
[2016-06-03 09:08] LABS: BUN/Creatinine Ratio 8 (6-26); Blood Urea Nitrogen 8 mg/dL (8-26); Calcium 8.5 mg/dL (8.6-10.8); Carbon Dioxide 18 mEq/L (19-29); Chloride 105 mEq/L (98-109); Glucose 347 mg/dL (70-99); Osmolality,Calculated 296 (280-300); Potassium 3.2 mEq/L (3.5-4.5); Sodium 137 mEq/L (136-145); eGFR For African Americans > 60 (> 60); eGFR For Non-African Americans > 60 (> 60)
[2016-06-03 10:10] LABS: Basophils # 0.1 K/mcL (0.0-0.2); Basophils % 0.6 %; Eosinophils # 0.1 K/mcL (0.0-0.6); Eosinophils % 0.5 %; Hematocrit 35.6 % (37.5-50.1); Immature Granulocytes % 0.3 % (0-4); Lymphocytes # 3.3 K/mcL (0.6-4.6); Lymphocytes % 34.6 %; Mean Corpuscular HGB Conc 35.1 g/dL (31.6-35.5); Mean Corpuscular Hemoglobin 27.5 pg (28.0-33.3); Mean Corpuscular Volume 78.4 fL (83.0-100.0); Mean Platelet Volume 10.7 fL (9.4-12.4); Monocytes # 0.5 K/mcL (0.0-1.3); Monocytes % 5.1 %; Neutrophils # 5.6 K/mcL (1.6-8.9); Platelet Count 232 K/mcL (140-400); Red Blood Count 4.54 M/mcL (4.19-5.50); Red Cell Distribution Width 14.5 % (11.5-14.5); Segmented Neutrophils % 58.9 %
[2016-06-03 10:18] LABS: Alanine Aminotransferase 12 Units/L (0-55); Alkaline Phosphatase 85 Units/L (38-126); Aspartate Amino Transferase 11 Units/L (5-34); BUN/Creatinine Ratio 6 (6-26); Blood Urea Nitrogen 7 mg/dL (8-26); Calcium 8.3 mg/dL (8.6-10.8); Carbon Dioxide 17 mEq/L (19-29); Chloride 106 mEq/L (98-109); Globulin 2.9 g/dL (2.4-3.5); Glucose 319 mg/dL (70-99); Osmolality,Calculated 294 (280-300); Potassium 3.1 mEq/L (3.5-4.5); Sodium 137 mEq/L (136-145); eGFR For African Americans > 60 (> 60); eGFR For Non-African Americans > 60 (> 60)
[2016-06-03 10:19] LABS: Bilirubin,Total 0.8 mg/dL (0.2-1.2); Total Protein 5.9 g/dL (6.0-8.3)
[2016-06-03 10:29] LABS: Hemoglobin 12.5 g/dL (12.9-16.9)
[2016-06-03 12:26] LABS: BUN/Creatinine Ratio 7 (6-26); Blood Urea Nitrogen 7 mg/dL (8-26); Carbon Dioxide 20 mEq/L (19-29); Chloride 109 mEq/L (98-109); Glucose 205 mg/dL (70-99); Potassium 2.9 mEq/L (3.5-4.5); Sodium 140 mEq/L (136-145); eGFR For African Americans > 60 (> 60); eGFR For Non-African Americans > 60 (> 60)
[2016-06-03 12:27] LABS: Alanine Aminotransferase 12 Units/L (0-55); Albumin 2.9 g/dL (3.5-5.0); Alkaline Phosphatase 82 Units/L (38-126); Aspartate Amino Transferase 11 Units/L (5-34); Bilirubin,Total 0.7 mg/dL (0.2-1.2); Calcium 8.4 mg/dL (8.6-10.8); Globulin 2.8 g/dL (2.4-3.5); Magnesium 1.7 mg/dL (1.7-2.2); Osmolality,Calculated 294 (280-300); Total Protein 5.7 g/dL (6.0-8.3)
[2016-06-03] MEDS ORDERED: D5% in Water 1,000 ML IV PRN (13:21)
[2016-06-03] MEDS ORDERED: *HR* Dextrose 50 % in Water (Syg) 50 ML SYRINGE IVP PRN (13:21)
[2016-06-03] MEDS ORDERED: Dextrose Gel 15 GM PO PRN ×2 (13:21)
[2016-06-03 14:29] LABS: BUN/Creatinine Ratio 8 (6-26); Blood Urea Nitrogen 7 mg/dL (8-26); Calcium 8.4 mg/dL (8.6-10.8); Carbon Dioxide 19 mEq/L (19-29); Chloride 110 mEq/L (98-109); Glucose 126 mg/dL (70-99); Osmolality,Calculated 288 (280-300); Potassium 3.3 mEq/L (3.5-4.5); Sodium 139 mEq/L (136-145); eGFR For African Americans > 60 (> 60); eGFR For Non-African Americans > 60 (> 60)
[2016-06-03] MEDS: 0.9 % Sodium Chloride 1,000 ML IV SCH (16:20)
[2016-06-03] MEDS ORDERED: Insulin NPH/REG 70/30 100 UNIT/ML (x5UNIT) SQ SCH (16:30)
[2016-06-03] MEDS: Insulin LISPRO 300 UNITS/3 ML VIAL SQ SCH ×2 (16:38→17:09)
[2016-06-03 21:22] LABS: Magnesium 1.7 mg/dL (1.7-2.2); Phosphorous 3.6 mg/dL (2.3-4.7)
[2016-06-03 21:24] LABS: Alanine Aminotransferase 12 Units/L (0-55); Albumin 2.8 g/dL (3.5-5.0); Albumin/Globulin Ratio 1.2 (1.1-2.2); Alkaline Phosphatase 72 Units/L (38-126); Aspartate Amino Transferase 11 Units/L (5-34); BUN/Creatinine Ratio 7 (6-26); Bilirubin,Total 0.5 mg/dL (0.2-1.2); Blood Urea Nitrogen 7 mg/dL (8-26); Calcium 7.9 mg/dL (8.6-10.8); Carbon Dioxide 20 mEq/L (19-29); Chloride 106 mEq/L (98-109); Globulin 2.4 g/dL (2.4-3.5); Glucose 255 mg/dL (70-99); Osmolality,Calculated 291 (280-300); Potassium 3.2 mEq/L (3.5-4.5); Sodium 137 mEq/L (136-145); Total Protein 5.2 g/dL (6.0-8.3); eGFR For African Americans > 60 (> 60); eGFR For Non-African Americans > 60 (> 60)
[2016-06-04] MEDS: 0.9 % Sodium Chloride 1,000 ML IV SCH ×2 (03:03→17:05)
[2016-06-04 05:33] LABS: BUN/Creatinine Ratio 8 (6-26); Blood Urea Nitrogen 7 mg/dL (8-26); Calcium 7.8 mg/dL (8.6-10.8); Carbon Dioxide 18 mEq/L (19-29); Chloride 108 mEq/L (98-109); Glucose 245 mg/dL (70-99); Magnesium 1.8 mg/dL (1.7-2.2); Osmolality,Calculated 288 (280-300); Potassium 4.1 mEq/L (3.5-4.5); Sodium 136 mEq/L (136-145); eGFR For African Americans > 60 (> 60); eGFR For Non-African Americans > 60 (> 60)
[2016-06-04 05:47] LABS: Ionized Calcium 1.18 mmol/L (1.15-1.35)
[2016-06-04] MEDS: Magnesium Sulfate 2 GM in D5% in Water 100 ML IVPB PRN (06:11)
--- NOTE | 2016-06-04 08:11 | Internal Med Progress Note ---
Date of Encounter: 06/04/16 Time of Encounter: 08:08 - Assessment and plan (1) DKA (diabetic ketoacidosis) Current Visit: Yes Status: Acute Qualifiers: Diabetes mellitus type: other specified (including KALYANI) Diabetes mellitus complication detail: without coma Qualified Code(s): E13.10 - Other specified diabetes mellitus with ketoacidosis without coma (2) Diabetes mellitus, new onset Current Visit: Yes Status: Acute (3) High anion gap metabolic acidosis Current Visit: Yes Status: Acute (4) Obesity (BMI 30-39.9) Current Visit: Yes Status: Chronic Assessment and plan: Acidosis resolved yesterday and patient started on NPH insulin 15 units bid. FSG not at goal, will increase to 20 bid. consult soc svc for prescription assistance. Mild acidosis noted today, continue fluids and insulin coverage. recheck BMP regular exercise and diabetic diet regimen recommended. - Subjective Interval history: f/u for DKA, No new complains - Constitutional Vitals: Temp Pulse Resp BP Pulse Ox 97.9 F 76 16 140/90 99 06/04/16 07:55 06/04/16 07:55 06/04/16 07:55 06/04/16 07:55 06/04/16 07:55 General appearance: Present: A&O X 3, obese, answers questions appropriately - Head Head exam: Present: atraumatic, normocephalic - Eye Eye exam: Present: PERRL, conjuntiva pink, sclera anicteric Pupils: Present: PERRL - Neck Neck exam general surgery: Present: supple, trachea midline. Absent: lymphadenopathy - Respiratory Respiratory exam: Present: CTAB. Absent: accessory muscle use, rales, rhonchi, wheezes - Cardiovascular Cardiovascular exam: Present: RRR, +S1, +S2. Absent: diastolic murmur, gallop, rubs, systolic murmur - GI/Abdominal GI/Abdominal exam: Present: normal bowel sounds, soft, no peritoneal signs. Absent: distended, tenderness - Extremities Exam Extremities exam: Present: warm, radial pulses palpable and symetrical. Absent : calf tenderness, cyanotic, pedal edema - Neurological Exam Neurological exam: Present: CN II-XII intact, oriented X3, no focal deficits. Absent: pronater drift, facial droop, speech deficit - Skin Skin exam: Present: dry, intact Internal Medicine: Result - Labs CBC & Chem 7: 06/05/16 03:44 06/05/16 03:44 Labs: Short CBC 06/03/16 Range/Units 09:45 WBC 9.6 (4.3-11.1) K/mcL Hgb 12.5 L D (12.9-16.9) g/dL Hct 35.6 L (37.5-50.1) % Plt Count 232 (140-400) K/mcL Neutrophils # 5.6 (1.6-8.9) K/mcL BMP 06/03/16 06/03/16 06/03/16 08:45 09:45 12:00 Sodium 137 137 140 Potassium 3.2 L 3.1 L 2.9 L Chloride 105 106 109 Carbon Dioxide 18 L 17 L 20 BUN 8 7 L 7 L Creatinine 1.05 1.08 0.99 Glucose 347 H 319 H 205 H Calcium 8.5 L 8.3 L 8.4 L 06/03/16 06/03/16 06/04/16 13:55 20:52 05:11 Sodium 139 137 136 Potassium 3.3 L 3.2 L 4.1 Chloride 110 H 106 108 Carbon Dioxide 19 20 18 L BUN 7 L 7 L 7 L Creatinine 0.88 0.97 0.83 Glucose 126 H 255 H 245 H Calcium 8.4 L 7.9 L 7.8 L Liver Function 06/03/16 06/03/16 06/03/16 Range/Units 09:45 12:00 20:52 Total Bilirubin 0.8 D 0.7 0.5 (0.2-1.2) mg/dL AST 11 11 11 (5-34) Units/L ALT 12 12 12 (0-55) Units/L Alkaline Phosphatase 85 82 72 (38-126) Units/L Albumin 3.0 L D 2.9 L 2.8 L (3.5-5.0) g/dL - ABG Interpretation ABG results: ABG ABG pH 7.17 pH Units (7.32-7.45) L* 06/01/16 23:47 ABG pCO2 14 mmHg (35-45) L* 06/01/16 23:47 ABG pO2 133 mmHg (85-104) H 06/01/16 23:47 ABG O2 Saturation 98 % (95-98) 06/01/16 23:47 PT/INR, D-dimer PT 12.4 Seconds (9.4-12.1) H 06/02/16 06:30 Consult Discharge Plan - Plan Referrals: NO,PCP [Non-Partnered Physician] - Tomasz Cortez, IN PROCESS INSPECTOR [Primary Care Provider] - 06/10/16 2:00 pm (PLEASE TAKE THE NEW PATIENT PACKET FILLED OUT WITH YOU TO YOUR APPOINTMENT. YOU WILL NEED $ 125.00 UP FRONT. TAKE WITH YOU YOUR PICTURE ID, INS. CARD, AND ALL MEDICATION IN THE BOTTLES. TAKE YOUR DISCHARGE INSTUCTIONS WITH YOU TO YOUR APPOINTMENT. SHOW UP 15 MINS EARLY TO YOUR APPOINTMENT. IF YOU HAVE TO CANCEL PLEASE CALL 1- [phone] WITH IN 24 HOURS OF YOUR APPOINTMENT. THANKS)
[2016-06-04] MEDS: Insulin LISPRO 300 UNITS/3 ML VIAL SQ SCH ×3 (08:42→17:15)
[2016-06-04] MEDS: Insulin NPH/REG 70/30 100 UNIT/ML (x5UNIT) SQ SCH ×2 (08:43→17:15)
[2016-06-04] MEDS: Pantoprazole 40 MG VIAL IVP SCH (08:56)
[2016-06-05 03:59] LABS: Basophils % 0.6 %; Eosinophils # 0.1 K/mcL (0.0-0.6); Eosinophils % 1.7 %; Hematocrit 32.5 % (37.5-50.1); Hemoglobin 11.2 g/dL (12.9-16.9); Immature Granulocytes % 0.4 % (0-4); Lymphocytes # 1.9 K/mcL (0.6-4.6); Lymphocytes % 41.1 %; Mean Corpuscular HGB Conc 34.5 g/dL (31.6-35.5); Mean Corpuscular Hemoglobin 27.5 pg (28.0-33.3); Mean Corpuscular Volume 79.7 fL (83.0-100.0); Mean Platelet Volume 10.7 fL (9.4-12.4); Monocytes # 0.4 K/mcL (0.0-1.3); Monocytes % 8.9 %; Neutrophils # 2.2 K/mcL (1.6-8.9); Platelet Count 173 K/mcL (140-400); Red Blood Count 4.08 M/mcL (4.19-5.50); Red Cell Distribution Width 14.4 % (11.5-14.5); Segmented Neutrophils % 47.3 %
[2016-06-05 04:09] LABS: BUN/Creatinine Ratio 7 (6-26); Calcium 7.8 mg/dL (8.6-10.8); Carbon Dioxide 23 mEq/L (19-29); Chloride 109 mEq/L (98-109); Glucose 298 mg/dL (70-99); Osmolality,Calculated 296 (280-300); Potassium 3.3 mEq/L (3.5-4.5); Sodium 139 mEq/L (136-145); eGFR For African Americans > 60 (> 60); eGFR For Non-African Americans > 60 (> 60)
[2016-06-05 04:12] LABS: Blood Urea Nitrogen 5 mg/dL (8-26)
[2016-06-05] MEDS: Insulin LISPRO 300 UNITS/3 ML VIAL SQ SCH ×3 (07:40→16:57)
[2016-06-05] MEDS: Pantoprazole 40 MG VIAL IVP SCH (07:41)
[2016-06-05] MEDS ORDERED: Insulin NPH/REG 70/30 100 UNIT/ML (x5UNIT) SQ SCH (08:01)
[2016-06-05] MEDS: Insulin NPH/REG 70/30 100 UNIT/ML (x5UNIT) SQ SCH (08:07)
[2016-06-05] MEDS: 0.45 % Sodium Chloride w/KCl 20 MEQ/1,000 ML MLS IVC SCH (08:10)
--- NOTE | 2016-06-05 11:43 | Internal Med Progress Note ---
Date of Encounter: 06/05/16 Time of Encounter: 11:41 - Assessment and plan (1) DKA (diabetic ketoacidosis) Current Visit: Yes Status: Acute Qualifiers: Diabetes mellitus type: other specified (including KALYANI) Diabetes mellitus complication detail: without coma Qualified Code(s): E13.10 - Other specified diabetes mellitus with ketoacidosis without coma (2) Diabetes mellitus, new onset Current Visit: Yes Status: Acute (3) High anion gap metabolic acidosis Current Visit: Yes Status: Acute (4) Obesity (BMI 30-39.9) Current Visit: Yes Status: Chronic Assessment and plan: Acidosis resolved, glucose levels not at goal, will increase NPH 70/30 to 30 bid. soc svc for prescription assistance. Regular exercise and diabetic diet regimen recommended. - Subjective Interval history: f/u for DKA, No new complains - Constitutional Vitals: Temp Pulse Resp BP Pulse Ox 98.0 F 76 18 147/81 99 06/05/16 11:28 06/05/16 11:28 06/05/16 11:28 06/05/16 11:28 06/05/16 11:28 General appearance: Present: A&O X 3, obese, answers questions appropriately - Head Head exam: Present: atraumatic, normocephalic - Eye Eye exam: Present: PERRL, conjuntiva pink, sclera anicteric Pupils: Present: PERRL - Neck Neck exam general surgery: Present: supple, trachea midline. Absent: lymphadenopathy - Respiratory Respiratory exam: Present: CTAB. Absent: accessory muscle use, rales, rhonchi, wheezes - Cardiovascular Cardiovascular exam: Present: RRR, +S1, +S2. Absent: diastolic murmur, gallop, rubs, systolic murmur - GI/Abdominal GI/Abdominal exam: Present: normal bowel sounds, soft, no peritoneal signs. Absent: distended, tenderness - Extremities Exam Extremities exam: Present: warm, radial pulses palpable and symetrical. Absent : calf tenderness, cyanotic, pedal edema - Neurological Exam Neurological exam: Present: CN II-XII intact, oriented X3, no focal deficits. Absent: pronater drift, facial droop, speech deficit - Skin Skin exam: Present: dry, intact Internal Medicine: Result - Labs CBC & Chem 7: 06/05/16 03:44 06/05/16 03:44 Labs: Short CBC 06/05/16 Range/Units 03:44 WBC 4.7 D (4.3-11.1) K/mcL Hgb 11.2 L (12.9-16.9) g/dL Hct 32.5 L (37.5-50.1) % Plt Count 173 (140-400) K/mcL Neutrophils # 2.2 (1.6-8.9) K/mcL BMP 06/05/16 03:44 Sodium 139 Potassium 3.3 L Chloride 109 Carbon Dioxide 23 BUN 5 L Creatinine 0.73 Glucose 298 H Calcium 7.8 L - ABG Interpretation ABG results: ABG ABG pH 7.17 pH Units (7.32-7.45) L* 06/01/16 23:47 ABG pCO2 14 mmHg (35-45) L* 06/01/16 23:47 ABG pO2 133 mmHg (85-104) H 06/01/16 23:47 ABG O2 Saturation 98 % (95-98) 06/01/16 23:47 PT/INR, D-dimer PT 12.4 Seconds (9.4-12.1) H 06/02/16 06:30 Consult Discharge Plan - Plan Referrals: NO,PCP [Non-Partnered Physician] - Tomasz Cortez DIRECTOR DIABETES [Primary Care Provider] - 06/10/16 2:00 pm (PLEASE TAKE THE NEW PATIENT PACKET FILLED OUT WITH YOU TO YOUR APPOINTMENT. YOU WILL NEED $ 125.00 UP FRONT. TAKE WITH YOU YOUR PICTURE ID, INS. CARD, AND ALL MEDICATION IN THE BOTTLES. TAKE YOUR DISCHARGE INSTUCTIONS WITH YOU TO YOUR APPOINTMENT. SHOW UP 15 MINS EARLY TO YOUR APPOINTMENT. IF YOU HAVE TO CANCEL PLEASE CALL 1- [phone] WITH IN 24 HOURS OF YOUR APPOINTMENT. THANKS)
[2016-06-05] MEDS ORDERED: Insulin LISPRO 300 UNITS/3 ML VIAL SQ SCH (21:15)
[2016-06-06 04:12] LABS: Amphetamines NEGATIVE ng/mL (Cutoff 30); Barbiturates NEGATIVE ng/mL (Cutoff 75); Benzodiazepines NEGATIVE ng/mL (Cutoff 75); Cocaine NEGATIVE ng/mL (Cutoff 30); Methadone NEGATIVE ng/mL (Cutoff 40); Methamphetamines NEGATIVE ng/mL (Cutoff 30); Opiates NEGATIVE ng/mL (Cutoff 30); Phencyclidine NEGATIVE ng/mL (Cutoff 15)
[2016-06-06 04:37] LABS: Basophils % 0.8 %; Eosinophils # 0.2 K/mcL (0.0-0.6); Eosinophils % 3.1 %; Hematocrit 35.2 % (37.5-50.1); Hemoglobin 11.7 g/dL (12.9-16.9); Immature Granulocytes % 0.4 % (0-4); Lymphocytes # 2.1 K/mcL (0.6-4.6); Lymphocytes % 42.5 %; Mean Corpuscular HGB Conc 33.2 g/dL (31.6-35.5); Mean Corpuscular Hemoglobin 26.5 pg (28.0-33.3); Mean Corpuscular Volume 79.8 fL (83.0-100.0); Mean Platelet Volume 10.7 fL (9.4-12.4); Monocytes # 0.3 K/mcL (0.0-1.3); Monocytes % 6.6 %; Neutrophils # 2.3 K/mcL (1.6-8.9); Platelet Count 167 K/mcL (140-400); Red Blood Count 4.41 M/mcL (4.19-5.50); Red Cell Distribution Width 14.2 % (11.5-14.5); Segmented Neutrophils % 46.6 %
[2016-06-06 04:48] LABS: Ionized Calcium 1.14 mmol/L (1.15-1.35)
[2016-06-06 04:50] LABS: Magnesium 1.5 mg/dL (1.7-2.2); Phosphorous 4.2 mg/dL (2.3-4.7)
[2016-06-06 04:57] LABS: BUN/Creatinine Ratio 6 (6-26); Calcium 8.3 mg/dL (8.6-10.8); Carbon Dioxide 23 mEq/L (19-29); Chloride 108 mEq/L (98-109); Glucose 258 mg/dL (70-99); Osmolality,Calculated 294 (280-300); Potassium 3.4 mEq/L (3.5-4.5); Sodium 139 mEq/L (136-145); eGFR For African Americans > 60 (> 60); eGFR For Non-African Americans > 60 (> 60)
[2016-06-06 04:58] LABS: Blood Urea Nitrogen 4 mg/dL (8-26)
[2016-06-06] MEDS: Magnesium Sulfate 2 GM in D5% in Water 100 ML IVPB PRN (06:18)
[2016-06-06] MEDS ORDERED: Potassium Chloride 40 MEQ, Lidocaine 1% 2 ML in D5% in Water 500 ML IVPB ONE (07:42)
[2016-06-06] MEDS: Insulin LISPRO 300 UNITS/3 ML VIAL SQ SCH ×3 (08:25→16:33)
[2016-06-06] MEDS: Pantoprazole 40 MG VIAL IVP SCH (08:26)
[2016-06-06] MEDS: Insulin NPH/REG 70/30 100 UNIT/ML (x5UNIT) SQ SCH ×2 (08:27→18:03)
[2016-06-06 15:24] VITALS: BP 143/83
--- NOTE | 2016-06-06 16:55 | Discharge Summary ---
Date of Encounter: 06/06/16 Time of Encounter: 16:50 - Discharge Diagnosis (1) DKA (diabetic ketoacidosis) Priority: Primary Status: Acute Qualifiers: Diabetes mellitus type: other specified (including KALYANI) Diabetes mellitus complication detail: without coma Qualified Code(s): E13.10 - Other specified diabetes mellitus with ketoacidosis without coma (2) Diabetes mellitus, new onset Priority: Secondary Status: Acute (3) High anion gap metabolic acidosis Priority: Secondary Status: Acute (4) Obesity (BMI 30-39.9) Priority: Secondary Status: Chronic - Discharge Medications Prescriptions: Insulin NPH Hum/Reg Insulin Hm [Humulin 70/30 Kwikpen] 40 unit SQ Q12HR #1 insuln.pen Metoprolol [Lopressor] 25 mg PO BID #60 tablet Home Medications: Insulin NPH Hum/Reg Insulin Hm [Humulin 70/30 Kwikpen] 40 unit SQ Q12HR #1 insuln.pen 06/06/16 [Rx] Metoprolol [Lopressor] 25 mg PO BID #60 tablet 06/06/16 [Rx] Allergies/Adverse Reactions: Allergies No Known Allergies Allergy (Verified 06/01/16 19:18) Date of admission: 06/01/16 23:00 Primary care physician: Tomasz Cortez CNP Consults: 06/02/16 05:20 Consult to Invasive Line Access Team [CONS] Routine Reason for Consult: Vascular access Line Type: EPIV PICC line indications: Limited vascular access Time Notified: 05:21 Call Completed: No 06/02/16 07:17 Consult to Field Service Manager [CONS] Routine Comment: new dka Consult to Nutrition [CONS] Routine Comment: new DKA Consulting Provider: NUTRITION Reason for Dietary Consult: Diet Education 06/04/16 09:19 Consult to Reagent Tender Helper [CONS] Stat Reason for SW Consult: Patient will D/C this evening or tomorrow. New diabetic and no insurance. States he had applied for medicaid a week ago at [facility] but is not sure if he did it right. - Patient Status Disposition: Home, Self-Care Condition: Good Overall status at discharge: patient is back to baseline - Discharge Instructions Follow Up With: NO,PCP [Non-Partnered Physician] - Tomasz Cortez CNP [Primary Care Provider] - 06/10/16 2:00 pm (PLEASE TAKE THE NEW PATIENT PACKET FILLED OUT WITH YOU TO YOUR APPOINTMENT. YOU WILL NEED $ 125.00 UP FRONT. TAKE WITH YOU YOUR PICTURE ID, INS. CARD, AND ALL MEDICATION IN THE BOTTLES. TAKE YOUR DISCHARGE INSTUCTIONS WITH YOU TO YOUR APPOINTMENT. SHOW UP 15 MINS EARLY TO YOUR APPOINTMENT. IF YOU HAVE TO CANCEL PLEASE CALL 1- [phone] WITH IN 24 HOURS OF YOUR APPOINTMENT. THANKS) - Diet and Activity Activity: increase activity as tolerated Diet: diabetic diet Hospital course: Mr. Thomson is a 21 year old male who presented with DKA and was treated with insulin, iv fluids and electrolyte replacement per DKA protocol. Pt had persistent metabolic acidosis after insulin drip was initially discontinued and had to be restarted on insulin drip. Eventuall acidosis resolved. Pt developed several episodes of hypokalemia which was corrected prior to discharge. Pt is given rx for insulin pen 70/30 and also metoprolol for BP control. He should followup with pcp in 1 week. - Time Spent with Patient Total time spent providing and/or coordinating discharge services: - Constitutional Vitals: Temp Pulse Resp BP Pulse Ox 98.1 F 72 16 143/83 95 06/06/16 15:00 06/06/16 15:57 06/06/16 15:00 06/06/16 15:00 06/06/16 15:00 General appearance: Present: A&O X 3, obese, answers questions appropriately - Head Head exam: Present: atraumatic, normocephalic - Eye Eye exam: Present: PERRL, conjuntiva pink, sclera anicteric Pupils: Present: PERRL - Neck Neck exam general surgery: Present: supple, trachea midline. Absent: lymphadenopathy - Respiratory Respiratory exam: Present: CTAB. Absent: accessory muscle use, rales, rhonchi, wheezes - Cardiovascular Cardiovascular exam: Present: RRR, +S1, +S2. Absent: diastolic murmur, gallop, rubs, systolic murmur - GI/Abdominal GI/Abdominal exam: Present: normal bowel sounds, soft, no peritoneal signs. Absent: distended, tenderness - Extremities Exam Extremities exam: Present: warm, radial pulses palpable and symetrical. Absent : calf tenderness, cyanotic, pedal edema - Neurological Exam Neurological exam: Present: CN II-XII intact, oriented X3, no focal deficits. Absent: pronater drift, facial droop, speech deficit - Skin Skin exam: Present: dry, intact
[2016-06-06] MEDS ORDERED: FLU VACC QS2016-17 36MOS UP/PF 0.5 ML SYRINGE IM ONE (17:37)
== END 2016-06-06 18:20 | disposition home or self-care (01) | DRG 420 ==
LOC: 2NNU → PREINTOOBSV 21:30 → SUATTDRO 23:00
PROVIDERS: ADMIT Internal Medicine; ATTEND Family Medicine